=== PATIENT | male | born 1975 | race Caucasian/White ===

== ENCOUNTER 2025-03-29 20:32 | Emergency (ER) | payer BC, SELFPAY ==
[2025-03-29 20:34] VITALS: BP 147/84
--- NOTE | 2025-03-29 23:32 | ED.GENMED ---
History of Present Illness
General
Chief Complaint: Musculo-Skeletal Complaint
Source: patient
Time Seen by Provider: 03/29/25 23:20
History of Present Illness
History of Present Illness:
49-year-old male presents with pain and swelling to the right ankle that has been going on for 3 days. He denies any trauma. He is unsure if there was any injury at all. He states that his right ankle is a little bit more swollen than the left.
He denies calf tenderness. Reports no knee tenderness
Phy Exam
General Physical Exam
General Presentation: well appearing and mild distress
General Skin: warm and dry
General Habitus: normal
General Mental: alert
General Hydration: appears well hydrated
ENT Exam
ENT Exam: EOMI, pharynx normal, neck supple and normocephalic
Eye Exam
Eye Exam: PERRL, cornea clear and conjunctiva normal
Cardiovascular Exam
Cardiovascular Exam: regular rate/rhythm, no edema, no murmur and normal peripheral pulses
Pulmonary Exam
Pulmonary Exam: lungs clear, no respiratory distress, no rales, no crackles, no rhonchi, no stridor, no wheezing and no cough
Gastrointestinal Exam
Gastrointestinal Exam: normal bowel sounds, non tender, soft, no organomegaly, no pulsatile mass and non distended
Neurological Exam
Neurological Exam: alert, oriented x3, no motor deficits and speech normal
Musculoskeletal Exam
Musculoskeletal Exam: full ROM, edema and joint swelling
Skin Exam
Skin Exam: normal color, warm/dry, no rash and no petechia
Psychiatric Exam
Psychiatric Exam: normal mood/affect
Course
Orders/Labs/Results
Orders:
Orders
03/29/25 20:37
CR Ankle - Right Min 3 Views * Urgent
Comment:
Reason For Exam: pain, swelling
03/29/25 23:31
US Legs, Right [US Periph Venous LOWER Ext RT] Urgent
Comment:
Reason For Exam: r leg swelling
Vital Signs
Initial and Last Documented VS:
Initial Vital Signs
Temp Pulse Resp BP Pulse Ox
98.5 F 59 16 147/84 100
03/29/25 20:34 03/29/25 20:34 03/29/25 20:34 03/29/25 20:34 03/29/25 20:34
Last Documented Vital Signs
Temp Pulse Resp BP Pulse Ox
98.5 F 68 18 136/87 100
03/29/25 20:34 03/30/25 00:55 03/30/25 00:55 03/30/25 00:55 03/30/25 00:55
*Critical Care Note
Total Time (30-74mins, 75-104mins- exclusive of procedures): Not Applicable
Update Note
Update Note:
Ultrasound of the lower extremity is negative for DVT
Full range of motion of the ankle. He does have calluses on his great toe. He is under the care of podiatry.
ED Attending Note
-
Portions of this chart may have been created with voice recognition software.� Occasional wrong word or��sound alike� substitutions may have occurred due to the inherent limitations of voice recognition software.
Discharge Plan
Departure
Patient Disposition: Home (Routine Discharge)
Date of Disposition: 03/30/25
Time of Disposition: 00:22
Patient with high blood pressure during this ER visit?: No
Discharge Problem:
Leg swelling
Instructions: Swelling, Using Cold for Pain, BLOOD PRESSURE
Referrals:
Rajinder Estevez MD [Family Provider] -
Activity Restrictions/Additional Instructions:
Thank You for choosing [facility].
It was a pleasure meeting you and taking part in your care. We hope for your continued healing and wellness.
Please read discharge instructions in their entirety. However, they are for general education and may not describe your exact diagnosis at discharge. Information on your ER visit and medical conditions were discussed with you along with appropriate
follow up information...
If indicated, please take your medications as instructed and indicated on discharge paperwork.
Please schedule a follow up appointment as directed. Call to schedule an appointment
Please return to the emergency department with ANY change in, persisting, or worsening of symptoms. If any of your symptoms do not improve, or persist, or become more severe within 6-12 hours, please return to the emergency department for further
care.
Please return to the emergency department if you develop a headache, neck pain/stiffness, fever greater than 100.4F, chest pain, shortness of breath, persistent nausea, vomiting, slurred speech, difficulty walking, numbness/tingling, weakness, signs
of infection or any other symptoms that are worrisome to you.
If you have any questions or concerns please do not hesitate to call the Hospital at or E-mail me directly at [email or web address]
Interventions
Interventions:
*Risk Screen - Suicide Last Done: 03/29/25 20:34
*General Assessment Last Done: 03/29/25 20:34
*Neglect/Abuse Screening Last Done: 03/29/25 20:34
*ED- Fall Risk Assessment Last Done: 03/29/25 23:21
*ED COVID-19 Vaccine History Last Done: 03/29/25 20:34
*Nursing Disposition Last Done: 03/30/25 00:55
ED-Musculoskeletal Assessment Last Done: 03/29/25 23:26
Discharge Date and Time
Discharge Date/Time: 03/30/25 00:55
Print Language: SAMI
[2025-03-29 23:42] VITALS: BP 132/89
[2025-03-30 00:55] VITALS: BP 136/87
== END 2025-03-30 00:55 | disposition home or self-care (01) ==
LOC: EMR 20:32
PROVIDERS: EMERGENCY PHYSICIAN Student in an Organized Health Care Education/Training Program; FAMILY PHYSICIAN Internal Medicine
DX: R22.41 Localized swelling, mass and lump, right lower limb (principal)
CPT/HCPCS: 99284; 73610; 93971